=== PATIENT | female | born 1980 | race Two or more races ===

== ENCOUNTER 2016-06-22 17:27 | Emergency (ER) | payer OTHER ==
[~2016-06-22] VITALS: Ht 167.6 cm; Wt 78.0 kg
[2016-06-22 17:39] VITALS: BP 139/74
[2016-06-22] MEDS ORDERED: BACITRACIN TOP OINT 1 UD PKG TOP ONE (19:45)
[2016-06-22] MEDS ORDERED: ONDANSETRON HCL 4 MG/2 ML VIAL IM ONE (19:45)
[2016-06-22] MEDS ORDERED: HYDROmorphone HCL 2 MG/ML VL IM ONE (19:45)
== END 2016-06-22 22:48 | disposition home or self-care (01) ==
LOC: EDBD 17:27 → ER 17:28
DX: S51.812A Laceration without foreign body of left forearm, initial encounter (principal); S16.1XXA Strain of muscle, fascia and tendon at neck level, initial encounter; S60.051A Contusion of right little finger without damage to nail, initial encounter; S50.02XA Contusion of left elbow, initial encounter; R51 Headache; V43.52XA Car driver injured in collision with other type car in traffic accident, initial encounter; Y93.89 Activity, other specified; Y99.8 Other external cause status; Y92.488 Other paved roadways as the place of occurrence of the external cause
CPT/HCPCS: 70450; 72125; 73080; 73130; 96372; 99284; J1170; J2405